=== PATIENT | male | born 1940 | race Caucasian/White ===

== ENCOUNTER 2016-09-06 21:01 | Emergency (ER) | payer OTHER ==
--- NOTE | 2016-09-07 00:07 | DIAGNOSTIC IMAGING REPORT ---
PROCEDURE: XR CHEST 1 VIEW INDICATION: COUGH TECHNIQUE: Portable AP view (2200 hours). COMPARISON: None. FINDINGS: Allowing for overlying wires and electrodes, lungs are clear. Status post median sternotomy and coronary artery bypass graft. Heart and mediastinum are of normal size. Thorax is normal. IMPRESSION: 1. Status post coronary bypass graft. 2. Otherwise negative chest.
--- NOTE | 2016-09-07 00:20 | DIAGNOSTIC IMAGING REPORT ---
PROCEDURE: CTA THORAX WITH CONTRAST INDICATION: SHORTNESS OF BREATH TECHNIQUE: AML of Isovue 370 was injected intravenously and axial images were obtained of the entire thorax with 3D sagittal and coronal MIP reconstructions. COMPARISON: None. FINDINGS: There are mild to moderate bibasilar parenchymal changes. Mid and upper lungs are clear. Pulmonary vessels are normal and there is no evidence of pulmonary embolus. Status post coronary artery bypass graft. Heart and mediastinum are of normal size. Thorax is normal. IMPRESSION: 1. Mild to moderate bibasilar parenchymal changes compatible with pneumonia (e.g., aspiration, bacterial, Mycoplasma). 2. Status post coronary artery bypass graft. 3. Otherwise negative CT pulmonary arteriogram. No evidence of pulmonary embolus.. 4. Findings discussed with Dr. Krzysztof Monroe. All CT scans at this facility use dose modulation, iterative reconstruction, and/or weight-based dosing when appropriate to reduce radiation dose to as low as reasonably achievable.
--- NOTE | 2016-09-07 02:49 | ED CLINICAL REPORT ---
Clinical Report - Physicians/Mid Levels [facility] [address] [place] [address] 09/06/2016 21:02 Patient: YENNY ESCALERA Time Seen: 2125; initial patient contact. Arrived- By private vehicle. Historian- patient. HISTORY OF PRESENT ILLNESS The patient recovered at the scene. Chief Complaint: NEAR-SYNCOPE. This occurred just prior to arrival Pt here in the ED with his who is a patient. Event was witnessed. The patient felt faint. The patient had preceding symptoms of light-headedness and nausea. At time of event, he was sitting. No injuries noted. He currently has weakness. Similar symptoms previously: None. Recent medical care: Not recently seen/assessed. REVIEW OF SYSTEMS No headache, chest pain, palpitations, abdominal pain or vomiting. No diarrhea, fever or difficulty breathing. He has had dizziness and weakness. He has had a nonproductive cough (for 3 months). All systems otherwise negative, except as recorded above. PAST HISTORY ( Diabetes Mellitus Type 2. Hypothyroidism. Myocardial Infarction. Hyperlipidemia.). Surgeries: Coronary artery bypass graft surgery. Medications: MetFORMIN HCl Oral. ASA Oral. Atorvastatin Calcium Oral. Levothyroxine Sodium Oral. Metoprolol Tartrate Oral. Unknown. Allergies: No Known Drug Allergy. SOCIAL HISTORY Former smoker, end date 1976. ADDITIONAL NOTES The nursing notes have been reviewed. PHYSICAL EXAM Vital Signs: 09/06/2016 21:15 BP: 151/58. HR: 118. RR: 22. O2 saturation: 94%. Temp: 98.3 F. Pain level now: 0/10. Have been reviewed. Hypertensive. Tachycardic. Tachypneic. Temperature normal. Oxygen saturation low. Appearance: Alert. No acute distress. ENT: Dry mucous membranes present. Neck: Normal inspection. No JVD. CVS: Tachycardia. Rhythm normal. Respiratory: No respiratory distress. Breath sounds normal. Abdomen: Soft and nontender. No organomegaly. The bowel sounds are not abnormal. Skin: Slight pallor. Extremities: No calf tenderness. No lower extremity edema. Neuro: Alert. Oriented X 3. Mood/affect normal. Speech normal. LABS, X-RAYS, AND EKG EKG: EKG time: (2210). Narrow-complex tachycardia (ventricular rate 115). Sinus tachycardia. Normal P waves. Normal DIANN. Normal QRS complex. Normal axis. Normal QT and QTc. Moderate ST depression in lead V3, V4, V5 and V6- consistent with ischemia (1 - 2 mm). Moderate T wave inversion in lead V3, V4, V5 and V6- consistent with ischemia. Prior EKG unavailable. The study has been interpreted contemporaneously by me. The study has been independently viewed by me. The EKG appears to be a good tracing. I agree with and confirm the computer reading of the EKG. Interpretation time: 221. Chest X-ray: No acute disease. Normal lung markings present. Normal heart size. No infiltrate. Sternotomy wires present. Views: AP. Technique: good. The X-rays were independently viewed by me and interpreted contemporaneously by me. Prior films were not available for comparison. Interpretation time: 22:04. Laboratory Tests: CPK: (ALFRED: 09/07/2016 02:10) ( [facility] 09/07/2016 03:04) IP Test Result Flag Units (Reference) CPK 285 H U/L (24-260) TROPONIN I 0.61 ng/mL (0.00-1.5) TROPONIN REFERENCE RANGE:<0.1 NEGATIVE0.1-1.5 INDETERMINANT>1.5 POSITIVE UA-Culture if indicated: (ALFRED: 09/06/2016 23:10) ( [facility] 09/06/2016 23:30) Final results Test Result Flag Units (Reference) URINE COLOR YELLOW URINE APPEARANCE SLIGHTLY HAZY URINE GLUCOSE NEGATIVE (NEGATIVE) URINE BILIRUBIN NEGATIVE (NEGATIVE) URINE KETONE NEGATIVE (NEGATIVE) URINE SPECIFIC GRAVITY 1.025 (1.010-1.030) URINE PH 5.5 (5.0-8.0) URINE PROTEIN 1+ (NEGATIVE) URINE UROBILINOGEN 0.2 EU/dL (0.2-1.0) URINE NITRITE POSITIVE (NEGATIVE) URINE BLOOD 2+ (NEGATIVE) URINE LEUK ESTERASE POSITIVE (NEGATIVE) URINE RBC 3-5 rbc/hpf (0-1) URINE WBC 15-25 wbc/hpf (0-1) URINE EPITHELIAL CELLS RARE EPI/hpf (0-5) URINE BACTERIA MANY (4+) (NONE SEEN) URINE COMMENT CULTURE INDICATED HYALINE CAST: 1-3/LPFURINE CULTURES ARE SET-UP BASED ON THE FOLLOWING CRITERIA:POSITIVE NITRITEPOSITIVE LEUKOCYTE ESTERASEGREATER THAN 10 WHITE BLOOD CELLSMODERATE (2+) OR GREATER BACTERIA CBC w Diff: (ALFRED: 09/06/2016 21:20) ( [facility] 09/06/2016 23:12) Final results Test Result Flag Units (Reference) WHITE BLOOD COUNT 5.3 K/uL (4.5-11.5) CORRECTED WBC 5.1 K/uL RED BLOOD COUNT 3.65 L M/uL (4.50-5.90) HEMOGLOBIN 8.2 L gm/dL (13.5-17.5) HEMATOCRIT 26.4 L % (41.0-53.0) MEAN CELL VOLUME 72 L fL (80-100) MEAN CORPUSCULAR HGB 23 L pg (26-34) MEAN CORPUSCULAR HGB CONC 31 g/dL (31-37) RED CELL DISTRIBUTION WIDTH 30.9 H % (11.6-14.8) POLY % 5 L % (50-75) BAND % 14 H % (0-8) LYMPH 67 H % (25-40) MONO 9 % (3-14) EOSINOPHIL % 0 % (0-4) BASOPHIL % 0 % (0-2) METAMYELOCYTE % 2 H % (0-1) MYELOCYTE 3 H % (0-1) NUCLEATED RED BLOOD CELL 4 H (0-1) OTHER CELL TYPE 0 HYPOCHROMIA 1+ ANISOCYTOSIS 4+ [id number]: (ALFRED: 09/06/2016 21:20) ( [facility] 09/06/2016 22:36) Final results Test Result Flag Units (Reference) D-DIMER QUANTITATIVE 10.88 *H ug/mLFEU (0.27-0.52) CRITICAL RESULTS CALLEDCalled to BRITTANY ADKINS, ER 09/06/16 2235Were 2 patient identifiers used? YESWas the result read back? YESThe primary value of this quantitative assay relates toits negative predictive value (i.e. exclusion) of pulmonaryembolism/deep vein thrombosis/DIC.Elevated levels of d-dimer may also occur with:, age, cancer, inflammation, liver disease,post-op, infection, hematoma, coronary disease, peripheralarteriopathy, bleeding disorders and thrombolytic treatment.Results should be correlated with other clinical andradiological data.Testing Methodology: Latex Immunoassay BNP: (ALFRED: 09/06/2016 21:20) ( Wag[facility]cvd 09/06/2016 22:37) Final results Test Result Flag Units (Reference) B-TYPE NATRIURETIC PEPTIDE 322 H pg/ml (5-100) CHEM 13 PANEL: (ALFRED: 09/06/2016 21:20) ( Wag[facility]cv[facility] 09/06/2016 23:12) Final results Test Result Flag Units (Reference) GLUCOSE 140 H mg/dL (70-110) BUN 20 H mg/dL (7-18) CREATININE 1.3 mg/dL (0.6-1.3) Estimated GFR 57.20 mL/min Estimated GFR- >60 mL/min Note: Persistent reduction over 3 months in eGFR<60 mL/min/1.73 m2 defines CKD. Patients with eGFR values>=60 mL/min/1.73 m2 may also have CKD if evidence ofpersistent proteinuria. Additional information may be foundat www.kidney.org. SODIUM 136 mmol/L (136-145) POTASSIUM 4.1 mmol/L (3.5-5.1) CHLORIDE 99 mmol/L (98-107) CARBON DIOXIDE 21 mmol/L (21-32) CALCIUM 8.6 mg/dL (8.5-10.1) TOTAL PROTEIN 9.8 H g/dL (6.4-8.2) ALBUMIN 2.7 L g/dL (3.3-5.0) BILIRUBIN, TOTAL 0.6 mg/dL (0.0-1.0) ALKALINE PHOSPHATASE 51 U/L (46-116) AST (SGOT) 28 U/L (15-37) ALT (SGPT) 22 U/L (12-78) CPK 331 H U/L (24-260) MAGNESIUM 1.6 L mg/dL (1.8-2.4) CK-MB 1.7 ng/mL (0.5-3.2) %CKMB 0.5 % (0.0-4.0) TROPONIN I 1.13 ng/mL (0.00-1.5) TROPONIN REFERENCE RANGE:<0.1 NEGATIVE0.1-1.5 INDETERMINANT>1.5 POSITIVE ABG: (ALFRED: 09/06/2016 23:07) ( MsgRcvd 09/07/2016 00:06) Final results Test Result Flag Units (Reference) FIO2 34 % (20-101) ABG MODE OF DELIVERY NC MODIFIED ARUNA TEST POSITIVE? YES ARTERIAL BLOOD GAS SITE LR ARTERIAL BLOOD GAS pH 7.42 (7.35-7.45) ABG PCO2 30.5 L mmHg (35-45) ABG PO2 135.0 H mmHg (60.0-80.0) ABG BASE EXCESS -4.3 H mmol/L (-6.0--6.0) ABG HCO3 19.9 L mmol/L (20.0-26.0) ABG TCO2 20.8 L mmol/L (24.0-30.0) ABG FgLaO1e 72.6 H mmHg (7.0-14.0) *NOTE: Normal rangeis based on aFIO2 of 21% ABG SAT O2 99.4 % (95.1-100.0) ABG TOTAL HEMOGLOBIN 6.8 *L g/dL (14.0-18.0) ABG O2 HEMOGLOBIN 98.1 % (95.0-100.0) ABG CARBOXYHEMOGLOBIN 1.0 % (0.5-1.5) ABG METHEMOGLOBIN 0.3 L % (0.4-1.5) ABG RHEMOGLOBIN 0.6 % . PROGRESS AND PROCEDURES Course of Care: 0030: Dr. Larry at Prov: Not an ICU candidate and no regular beds available(called Prov b/c his telephoto installer is there. 0045: Dr. Abraham: Declines pt due to no cardiology here 0130: Dr. [facility] [place] accepts as well as hospitalist Dr. Glover. Critical care performed (90 minutes). Time includes: direct patient care, patient reassessment, coordination of patient care, interpretation of data (laboratory data, arterial blood gases and chest xrays), review of patient's medical records, medical consultation, family consultation regarding treatment decisions and documentation of patient care. The patient required critical care due to the acute impairment of vital organ systems (cardiovascular, respiratory and hematologic) and a high probability of imminent deterioration. Multiple urgent interventions were required to prevent sudden deterioration. Disposition: Benefits, risks and alternatives to transfer explained to patient, family and spouse. Transferred to [facility]. Condition: stable. CLINICAL IMPRESSION Abnormal EKG: depressed ST segments and inverted T waves. Bacterial pneumonia with hypoxemia. Empiric antibiotics given in the ED. Moderate chronic anemia associated with chronic disease. Acute urinary tract infection with cystitis. Mild hypomagnesemia. (Electronically signed by Krzysztof Monroe Dr. 09/07/2016 3:08) Addenda for LALI YENNY Nick VisitID: [id number] Date: 09/06/2016 09/07/2016 3:07 400mg Magnesium Oxide given PO prior to pt leaving [facility]. (Electronically signed by Tania Deras R.N. 09/07/2016 3:07)
--- NOTE | 2016-09-07 02:49 | ED CLINICAL REPORT ---
Clinical Report - Physicians/Mid Levels [facility] [address] [place] [address] 09/06/2016 21:02 Patient: YENNY ESCALERA Time Seen: 2125; initial patient contact. Arrived- By private vehicle. Historian- patient. HISTORY OF PRESENT ILLNESS The patient recovered at the scene. Chief Complaint: NEAR-SYNCOPE. This occurred just prior to arrival Pt here in the ED with his who is a patient. Event was witnessed. The patient felt faint. The patient had preceding symptoms of light-headedness and nausea. At time of event, he was sitting. No injuries noted. He currently has weakness. Similar symptoms previously: None. Recent medical care: Not recently seen/assessed. REVIEW OF SYSTEMS No headache, chest pain, palpitations, abdominal pain or vomiting. No diarrhea, fever or difficulty breathing. He has had dizziness and weakness. He has had a nonproductive cough (for 3 months). All systems otherwise negative, except as recorded above. PAST HISTORY ( Diabetes Mellitus Type 2. Hypothyroidism. Myocardial Infarction. Hyperlipidemia.). Surgeries: Coronary artery bypass graft surgery. Medications: MetFORMIN HCl Oral. ASA Oral. Atorvastatin Calcium Oral. Levothyroxine Sodium Oral. Metoprolol Tartrate Oral. Unknown. Allergies: No Known Drug Allergy. SOCIAL HISTORY Former smoker, end date 1976. ADDITIONAL NOTES The nursing notes have been reviewed. PHYSICAL EXAM Vital Signs: 09/06/2016 21:15 BP: 151/58. HR: 118. RR: 22. O2 saturation: 94%. Temp: 98.3 F. Pain level now: 0/10. Have been reviewed. Hypertensive. Tachycardic. Tachypneic. Temperature normal. Oxygen saturation low. Appearance: Alert. No acute distress. ENT: Dry mucous membranes present. Neck: Normal inspection. No JVD. CVS: Tachycardia. Rhythm normal. Respiratory: No respiratory distress. Breath sounds normal. Abdomen: Soft and nontender. No organomegaly. The bowel sounds are not abnormal. Skin: Slight pallor. Extremities: No calf tenderness. No lower extremity edema. Neuro: Alert. Oriented X 3. Mood/affect normal. Speech normal. LABS, X-RAYS, AND EKG EKG: EKG time: (2210). Narrow-complex tachycardia (ventricular rate 115). Sinus tachycardia. Normal P waves. Normal DIANN. Normal QRS complex. Normal axis. Normal QT and QTc. Moderate ST depression in lead V3, V4, V5 and V6- consistent with ischemia (1 - 2 mm). Moderate T wave inversion in lead V3, V4, V5 and V6- consistent with ischemia. Prior EKG unavailable. The study has been interpreted contemporaneously by me. The study has been independently viewed by me. The EKG appears to be a good tracing. I agree with and confirm the computer reading of the EKG. Interpretation time: 221. Chest X-ray: No acute disease. Normal lung markings present. Normal heart size. No infiltrate. Sternotomy wires present. Views: AP. Technique: good. The X-rays were independently viewed by me and interpreted contemporaneously by me. Prior films were not available for comparison. Interpretation time: 22:04. Laboratory Tests: CPK: (ALFRED: 09/07/2016 02:10) ( [facility] 09/07/2016 03:04) IP Test Result Flag Units (Reference) CPK 285 H U/L (24-260) TROPONIN I 0.61 ng/mL (0.00-1.5) TROPONIN REFERENCE RANGE:<0.1 NEGATIVE0.1-1.5 INDETERMINANT>1.5 POSITIVE UA-Culture if indicated: (ALFRED: 09/06/2016 23:10) ( [facility] 09/06/2016 23:30) Final results Test Result Flag Units (Reference) URINE COLOR YELLOW URINE APPEARANCE SLIGHTLY HAZY URINE GLUCOSE NEGATIVE (NEGATIVE) URINE BILIRUBIN NEGATIVE (NEGATIVE) URINE KETONE NEGATIVE (NEGATIVE) URINE SPECIFIC GRAVITY 1.025 (1.010-1.030) URINE PH 5.5 (5.0-8.0) URINE PROTEIN 1+ (NEGATIVE) URINE UROBILINOGEN 0.2 EU/dL (0.2-1.0) URINE NITRITE POSITIVE (NEGATIVE) URINE BLOOD 2+ (NEGATIVE) URINE LEUK ESTERASE POSITIVE (NEGATIVE) URINE RBC 3-5 rbc/hpf (0-1) URINE WBC 15-25 wbc/hpf (0-1) URINE EPITHELIAL CELLS RARE EPI/hpf (0-5) URINE BACTERIA MANY (4+) (NONE SEEN) URINE COMMENT CULTURE INDICATED HYALINE CAST: 1-3/LPFURINE CULTURES ARE SET-UP BASED ON THE FOLLOWING CRITERIA:POSITIVE NITRITEPOSITIVE LEUKOCYTE ESTERASEGREATER THAN 10 WHITE BLOOD CELLSMODERATE (2+) OR GREATER BACTERIA CBC w Diff: (ALFRED: 09/06/2016 21:20) ( [facility] 09/06/2016 23:12) Final results Test Result Flag Units (Reference) WHITE BLOOD COUNT 5.3 K/uL (4.5-11.5) CORRECTED WBC 5.1 K/uL RED BLOOD COUNT 3.65 L M/uL (4.50-5.90) HEMOGLOBIN 8.2 L gm/dL (13.5-17.5) HEMATOCRIT 26.4 L % (41.0-53.0) MEAN CELL VOLUME 72 L fL (80-100) MEAN CORPUSCULAR HGB 23 L pg (26-34) MEAN CORPUSCULAR HGB CONC 31 g/dL (31-37) RED CELL DISTRIBUTION WIDTH 30.9 H % (11.6-14.8) POLY % 5 L % (50-75) BAND % 14 H % (0-8) LYMPH 67 H % (25-40) MONO 9 % (3-14) EOSINOPHIL % 0 % (0-4) BASOPHIL % 0 % (0-2) METAMYELOCYTE % 2 H % (0-1) MYELOCYTE 3 H % (0-1) NUCLEATED RED BLOOD CELL 4 H (0-1) OTHER CELL TYPE 0 HYPOCHROMIA 1+ ANISOCYTOSIS 4+ [id number]: (ALFRED: 09/06/2016 21:20) ( [facility] 09/06/2016 22:36) Final results Test Result Flag Units (Reference) D-DIMER QUANTITATIVE 10.88 *H ug/mLFEU (0.27-0.52) CRITICAL RESULTS CALLEDCalled to BRITTANY ADKINS, ER 09/06/16 2235Were 2 patient identifiers used? YESWas the result read back? YESThe primary value of this quantitative assay relates toits negative predictive value (i.e. exclusion) of pulmonaryembolism/deep vein thrombosis/DIC.Elevated levels of d-dimer may also occur with:, age, cancer, inflammation, liver disease,post-op, infection, hematoma, coronary disease, peripheralarteriopathy, bleeding disorders and thrombolytic treatment.Results should be correlated with other clinical andradiological data.Testing Methodology: Latex Immunoassay BNP: (ALFRED: 09/06/2016 21:20) ( CogRcvd 09/06/2016 22:37) Final results Test Result Flag Units (Reference) B-TYPE NATRIURETIC PEPTIDE 322 H pg/ml (5-100) CHEM 13 PANEL: (ALFRED: 09/06/2016 21:20) ( CogRcvd 09/06/2016 23:12) Final results Test Result Flag Units (Reference) GLUCOSE 140 H mg/dL (70-110) BUN 20 H mg/dL (7-18) CREATININE 1.3 mg/dL (0.6-1.3) Estimated GFR 57.20 mL/min Estimated GFR- >60 mL/min Note: Persistent reduction over 3 months in eGFR<60 mL/min/1.73 m2 defines CKD. Patients with eGFR values>=60 mL/min/1.73 m2 may also have CKD if evidence ofpersistent proteinuria. Additional information may be foundat www.kidney.org. SODIUM 136 mmol/L (136-145) POTASSIUM 4.1 mmol/L (3.5-5.1) CHLORIDE 99 mmol/L (98-107) CARBON DIOXIDE 21 mmol/L (21-32) CALCIUM 8.6 mg/dL (8.5-10.1) TOTAL PROTEIN 9.8 H g/dL (6.4-8.2) ALBUMIN 2.7 L g/dL (3.3-5.0) BILIRUBIN, TOTAL 0.6 mg/dL (0.0-1.0) ALKALINE PHOSPHATASE 51 U/L (46-116) AST (SGOT) 28 U/L (15-37) ALT (SGPT) 22 U/L (12-78) CPK 331 H U/L (24-260) MAGNESIUM 1.6 L mg/dL (1.8-2.4) CK-MB 1.7 ng/mL (0.5-3.2) %CKMB 0.5 % (0.0-4.0) TROPONIN I 1.13 ng/mL (0.00-1.5) TROPONIN REFERENCE RANGE:<0.1 NEGATIVE0.1-1.5 INDETERMINANT>1.5 POSITIVE ABG: (ALFRED: 09/06/2016 23:07) ( MsgRcvd 09/07/2016 00:06) Final results Test Result Flag Units (Reference) FIO2 34 % (20-101) ABG MODE OF DELIVERY NC MODIFIED ARUNA TEST POSITIVE? YES ARTERIAL BLOOD GAS SITE LR ARTERIAL BLOOD GAS pH 7.42 (7.35-7.45) ABG PCO2 30.5 L mmHg (35-45) ABG PO2 135.0 H mmHg (60.0-80.0) ABG BASE EXCESS -4.3 H mmol/L (-6.0--6.0) ABG HCO3 19.9 L mmol/L (20.0-26.0) ABG TCO2 20.8 L mmol/L (24.0-30.0) ABG WcObP1u 72.6 H mmHg (7.0-14.0) *NOTE: Normal rangeis based on aFIO2 of 21% ABG SAT O2 99.4 % (95.1-100.0) ABG TOTAL HEMOGLOBIN 6.8 *L g/dL (14.0-18.0) ABG O2 HEMOGLOBIN 98.1 % (95.0-100.0) ABG CARBOXYHEMOGLOBIN 1.0 % (0.5-1.5) ABG METHEMOGLOBIN 0.3 L % (0.4-1.5) ABG RHEMOGLOBIN 0.6 % . PROGRESS AND PROCEDURES Course of Care: 0030: Dr. Larry at Prov: Not an ICU candidate and no regular beds available(called Prov b/c his vegetable handler is there. 0045: Dr. Abraham: Declines pt due to no cardiology here 0130: Dr. [facility] [place] accepts as well as hospitalist Dr. Glover. Critical care performed (90 minutes). Time includes: direct patient care, patient reassessment, coordination of patient care, interpretation of data (laboratory data, arterial blood gases and chest xrays), review of patient's medical records, medical consultation, family consultation regarding treatment decisions and documentation of patient care. The patient required critical care due to the acute impairment of vital organ systems (cardiovascular, respiratory and hematologic) and a high probability of imminent deterioration. Multiple urgent interventions were required to prevent sudden deterioration. Disposition: Benefits, risks and alternatives to transfer explained to patient, family and spouse. Transferred to [facility]. Condition: stable. CLINICAL IMPRESSION Abnormal EKG: depressed ST segments and inverted T waves. Bacterial pneumonia with hypoxemia. Empiric antibiotics given in the ED. Moderate chronic anemia associated with chronic disease. Acute urinary tract infection with cystitis. Mild hypomagnesemia. (Electronically signed by Krzysztof Monroe Dr. 09/07/2016 3:08) Addenda for LALI YENNY Nick VisitID: [id number] Date: 09/06/2016 09/07/2016 3:07 400mg Magnesium Oxide given PO prior to pt leaving [facility]. (Electronically signed by Tania Deras R.N. 09/07/2016 3:07)
--- NOTE | 2016-09-07 02:50 | ED ORDER SUMMARY ---
..... Patient: YENNY ESCALERA OrderSheet [facility] VisitID: [id number] [place] [address] 76y, M Registration Date/Time: 09/06/2016 ORDER SHEET Weight: 87.0 kg (measured) Allergies: No Known Drug Allergy GENERAL ORDERS: Chest 1V Urgent (21:49 09/06/2016 Fernando Giordano) (Ack 21:53 Ольга) (22:04 Porter) UA-Culture if indicated Urgent (21:50 09/06/2016 Fernando Giordano) (Ack 21:53 Ольга) (23:23 Husam R.N.) Cardiac Panel Stat (21:50 09/06/2016 Fernando Giordano) (Ack 21:53 Ольга) (23:14 Husam R.N.) BNP Urgent (21:50 09/06/2016 Fernando Giordano) (Ack 21:53 Ольга) (23:14 Husam R.N.) D-Dimer Urgent (21:50 09/06/2016 Fernando Giordano) (Ack 21:53 Ольга) (23:14 Stevenandez R.N.) EKG - ER Stat (22:02 09/06/2016 Fernando Giordano) (Ack 22:12 Anusha) (22:12 Ольга) CTA Thorax w Cont (Yes) (20/1.3) Urgent (22:59 09/06/2016 Fernando Giordano) (Ack 23:05 Anusha) (0:03 Husam R.N.) ABG (G) Urgent (23:07 09/06/2016 Fernando Giordano) (Ack 23:19 Ольга) (0:03 Stevenandez R.N.) CPK Urgent (01:40 09/07/2016 Fernando Giordano) (Ack 1:54 Ольга) Troponin-I Urgent (01:40 09/07/2016 Fernando Giordano) (Ack 1:54 Ольга) MEDICATION ORDERS: IV FLUIDS: IV NS : initial bolus none -, then 1000 mL/hr for X1 (NOW) (21:49 09/06/2016 Fernando Giordano) (Ack 23:14 Husam R.N.) (23:17 Husam R.N.) Ceftriaxone IV 1 gm/50mL (NOW) (00:14 09/07/2016 Fernando Giordano) (Ack 0:19 Husam R.N.) (0:43 Husam R.N.) ORDER SHEET NOTES: [Electronically signed by Tania Deras R.N. (03:00 09/07/2016)] [Electronically signed by Krzysztof Monroe Dr. (03:08 09/07/2016)] [Electronically locked/signed by Tania Deras R.N. (03:00 09/07/2016)]
--- NOTE | 2016-09-07 02:50 | ED NURSING NOTES ---
Clinical Report - Nurses [facility] [address] [place] [address] 09/06/2016 21:02 Patient: YENNY ESCALERA TRIAGE Triage time 21:15. Acuity: LEVEL 2. Chief Complaint: DIZZINESS and NEAR-SYNCOPE. --21:26 Josh Choudhary R.N. 21:15 09/06/16. BP: 151/58. HR: 118. RR: 22. O2 saturation: 94%. Temp: 98.3 F. Pain level now: 0/10. --21:26 Josh Choudhary R.N. Weight: 87 kg measured. Height/Length: 67 inches Per Patient. BMI: 30.1. --21:24 Josh Choudhary R.N. Medications Unknown. --21:18 Josh Choudhary R.N. Metoprolol Tartrate Oral. --21:19 Josh Choudhary R.N. Levothyroxine Sodium Oral. --21:19 Josh Choudhary R.N. Atorvastatin Calcium Oral. --21:19 Josh Choudhary R.N. ASA Oral. --21:20 Josh Choudhary R.N. MetFORMIN HCl Oral. --21:20 Josh Choudhary R.N. Medication/allergy information source: the patient. --21:26 Josh Choudhary R.N. Allergies No Known Drug Allergy. --21:18 Josh Choudhary R.N. History Arrived by private vehicle. Historian: patient. Accompanied by family. ( Was sitting on the chair in the room with his as patient when stated c/o feeling dizzy, became pale and diaphoretic. Eyes rolled back and became pre-syncopal. Noted to have low BP.). This started just prior to arrival. PAST MEDICAL HX: Diabetes mellitus. Hypertension. SURGERY HX: Coronary artery bypass graft surgery. SOCIAL HX: Smoker- current status unknown. No infectious disease exposure. --21:26 Josh Choudhary R.N. PROBLEMS: Diabetes Mellitus Type 2. Hypothyroidism. Myocardial Infarction. Hyperlipidemia. --: Josh Choudhary R.N. Myelodysplastic syndrome (clinical). --01: Tania Deras R.N. Interventions ID band on patient. To room. --: Josh Choudhary R.N. PHYSICAL ASSESSMENT GENERAL / NEURO / PSYCH: Oriented X 4. Appears in no acute distress. Alert. Speech within normal limits. Pupillary exam: Pupils are equal, round, and reactive to light. Right pupil 2mm, round and briskly reactive to light directly and with accommodation. Left pupil: 2mm, round and briskly reactive to light directly and with accommodation. HEENT: Pupils equal, round and reactive to light. RESPIRATORY: Breath sounds within normal limits. Respirations not labored. CVS: Cardiac rhythm: sinus tachycardia. Capillary refill less than 2 seconds. GI / : The patient has had nausea. Abdomen soft and nontender. SKIN: Skin is pale, diaphoretic and clammy. --:28 Josh Choudhary R.N. NURSING PROGRESS NOTES Cardiac rhythm: sinus tachycardia. traffic monitor specialist, pulse oximeter and NIBP monitor placed on patient; nurse monitoring- Lead II. Patient ID band checked: patient confirmed. Blood samples drawn from the right antecubital space IV site with Vacutainer by nurse: mayuri cobos. Line flushed with 10 mL normal saline post blood draw. Patient gowned. Head of bed elevated 45 degrees. Reassurance given. Reassessment after fluids administered (PO). GENERAL / NEURO / PSYCH: Patient is calm and cooperative. Affect appears normal. Alert. Oriented X 4. RESPIRATORY: No respiratory distress. Patient identifiers checked. Call light placed in reach. Side rails up x 2. Bed placed in lowest position. Brakes of bed on. Patient ready for evaluation- ED physician and [facility] notified. --:30 Josh Choudhary R.N. EKG time: (22:11 PM). EKG was performed by a servando and shown to the ED physician. --22:14 Yakelin Carranza 21:47 09/06/2016 Site #1 started via IV in the right antecubital space with an 20g angiocath; one attempt. Saline lock flushed with 10 mL saline. --23:17 Josh Choudhary R.N. 22:17 09/06/2016 Started IV Fluids IV NS (Saline); bolus of 1000 mL over 1 hour(s) via site #1 via IV pump. Allergies verified and confirmed 5 rights. IV patency established. IV site checked: no pain, redness, or swelling. IV flushed thoroughly pre- and post-medication administration. --23:17 Josh Choudhary R.N. 23:18 09/06/2016 IV Fluids IV NS Discontinued: bag #1 infused. Total amount infused: 1000 mL. IV patency established. IV site checked: no pain, redness, or swelling. IV flushed thoroughly. --23:18 Josh Choudhary R.N. Reassessment after fluids administered. He is calm and resting quietly. Overall patient status is improved- he states feels better. GENERAL / NEURO / PSYCH: Patient is calm and cooperative. Affect appears normal. Alert. Oriented X 4. RESPIRATORY: No respiratory distress. CVS: Cardiac rhythm: sinus tachycardia. SKIN: Skin is warm and dry. --23:20 Josh Choudhary R.N. 23:18 09/06/16. BP: 135/67. HR: 124. RR: 20. O2 saturation: 95% on nasal cannula at 4 liters/minute. O2 started via nasal cannula at 4 liters/minute. Temp: 97.9 F (oral). --23:20 Josh Choudhary R.N. ( Preliminary report given to [facility] Nursing supervisor precision optical elements RN. Julianna). --23:33 Josh Choudhary R.N. 00:01 09/07/16. BP: 133/67. HR: 114. RR: 18. O2 saturation: 99%. Pain level now: 0/10. --00:03 Josh Choudhary R.N. Cardiac rhythm: sinus tachycardia. Patient ID band checked for patient name and birthdate: patient confirmed. Blood samples drawn from the left wrist with syringe by nurse ; labeled in presence of the patient and sent to lab. (ABG). Reassessment after procedure (CT scan). He reports no complaints and he is calm. Overall patient status is improved- he states feels better. GENERAL / NEURO / PSYCH: Patient is calm and cooperative. Affect appears normal. Alert. Oriented X 4. RESPIRATORY: No respiratory distress. SKIN: Skin is warm and dry. --00:03 Josh Choudhary R.N. 00:38 09/07/2016 Started 1 gm of Ceftriaxone IVPB in bag #1 50 mL; at 100 mL/hr over 30 minute(s) via site #1 via IV pump. Allergies verified and confirmed 5 rights. IV patency established. IV site checked: no pain, redness, or swelling. IV flushed thoroughly pre- and post-medication administration. --00:43 Josh Choudhary R.N. Cardiac rhythm: sinus tachycardia. Reassessment after medication administered. He reports no complaints and he is calm and resting quietly. Overall patient status is improved- he states feels better. GENERAL / NEURO / PSYCH: Patient is calm and cooperative. Alert. Oriented X 4. RESPIRATORY: No respiratory distress. SKIN: Skin is warm and dry. --00:45 Josh Choudhary R.N. 00:43 09/07/16. BP: 120/62. HR: 111. RR: 20. O2 saturation: 98% on nasal cannula at 4 liters/minute. Temp: 98.1 F (oral). Pain level now: 0/10. --00:45 Josh Choudhary R.N. 01:06 09/07/2016 Ceftriaxone IVPB Discontinued: bag #1 infused. Total amount infused: 50 mL. IV patency established. IV site checked: no pain, redness, or swelling. IV flushed thoroughly. --01:06 Josh Choudhary R.N. Cardiac rhythm: sinus tachycardia. Reassessment after medication administered (Ceftriaxone). He reports no complaints and he is calm and resting quietly. Overall patient status is improved- he states feels better. GENERAL / NEURO / PSYCH: Patient is calm and cooperative. Affect appears normal. Alert. Oriented X 4. RESPIRATORY: No respiratory distress. SKIN: Skin is warm and dry. --01:08 Josh Choudhary R.N. 01:06 09/07/16. BP: 125/66. HR: 110. RR: 20. O2 saturation: 96% on nasal cannula at 4 liters/minute. --01:08 Josh Choudhary R.N. Care transferred and report received. --01:15 Tania Deras R.N. Patient ID band checked for patient name and birthdate: patient confirmed. Blood samples drawn from the right antecubital space peripheral IV site with syringe by nurse per protocol ; labeled in presence of the patient and sent to lab. Initial blood discarded and additional blood sent to lab. Line flushed with 10 mL normal saline post blood draw. --02:13 Tania Deras R.N. DISPOSITION / DISCHARGE 02:36 09/07/16. BP: 144/66. HR: 128. RR: 16 (regular and unlabored). O2 saturation: 100% on nasal cannula at 2 liters/minute. Temp: deferred. Fisher-Rodas pain scale: 4/10. --02:37 Tania Deras R.N. Report was given to a nurse via a phone call. Report included patient's care, treatment, medications, reviewed medication reconcilliation, and condition (including any recent changes or anticipated changes). All questions were answered. Report was acknowledged. (to JED Ortega). --02:49 Tania Deras R.N. Transferred to [facility]. Summary of care provided to transport team via paper. Report was given. (to ground transportation operator, Magnus Gonsalez). Patient's personal items include: shirt, coat and hat; items were placed in belongings bag and transported with the patient. Collection of belongings was witnessed by 1 nurse. --02:58 Tania Deras R.N. Locked/Released at 09/07/2016 3:00 by Tania Deras R.N.
--- NOTE | 2016-09-07 02:50 | ED ORDER SUMMARY ---
..... Patient: YENNY ESCALERA OrderSheet [facility] VisitID: [id number] [place] [address] 76y, M Registration Date/Time: 09/06/2016 ORDER SHEET Weight: 87.0 kg (measured) Allergies: No Known Drug Allergy GENERAL ORDERS: Chest 1V Urgent (21:49 09/06/2016 Fernando Giordano) (Ack 21:53 Ольга) (22:04 Porter) UA-Culture if indicated Urgent (21:50 09/06/2016 Fernando Giordano) (Ack 21:53 Ольга) (23:23 Husam R.N.) Cardiac Panel Stat (21:50 09/06/2016 Fernando Giordano) (Ack 21:53 Ольга) (23:14 Husam R.N.) BNP Urgent (21:50 09/06/2016 Fernando Giordano) (Ack 21:53 Ольга) (23:14 Husam R.N.) D-Dimer Urgent (21:50 09/06/2016 Fernando Giordano) (Ack 21:53 Ольга) (23:14 Stevenandez R.N.) EKG - ER Stat (22:02 09/06/2016 Fernando Giordano) (Ack 22:12 Anusha) (22:12 Ольга) CTA Thorax w Cont (Yes) (20/1.3) Urgent (22:59 09/06/2016 Fernando Giordano) (Ack 23:05 Anusha) (0:03 Husam R.N.) ABG (G) Urgent (23:07 09/06/2016 Fernando Giordano) (Ack 23:19 Ольга) (0:03 Stevenandez R.N.) CPK Urgent (01:40 09/07/2016 Fernando Giordano) (Ack 1:54 Ольга) Troponin-I Urgent (01:40 09/07/2016 Fernando Giordano) (Ack 1:54 Ольга) MEDICATION ORDERS: IV FLUIDS: IV NS : initial bolus none -, then 1000 mL/hr for X1 (NOW) (21:49 09/06/2016 Fernando Giordano) (Ack 23:14 Husam R.N.) (23:17 Husam R.N.) Ceftriaxone IV 1 gm/50mL (NOW) (00:14 09/07/2016 Fernando Giordano) (Ack 0:19 Husam R.N.) (0:43 Husam R.N.) ORDER SHEET NOTES: [Electronically signed by Tania Deras R.N. (03:00 09/07/2016)] [Electronically signed by Krzysztof Monroe Dr. (03:08 09/07/2016)] [Electronically locked/signed by Tania Deras R.N. (03:00 09/07/2016)]
--- NOTE | 2016-09-07 02:50 | ED NURSING NOTES ---
Clinical Report - Nurses [facility] [address] [place] [address] 09/06/2016 21:02 Patient: YENNY ESCALERA TRIAGE Triage time 21:15. Acuity: LEVEL 2. Chief Complaint: DIZZINESS and NEAR-SYNCOPE. --21:26 Josh Choudhary R.N. 21:15 09/06/16. BP: 151/58. HR: 118. RR: 22. O2 saturation: 94%. Temp: 98.3 F. Pain level now: 0/10. --21:26 Josh Choudhary R.N. Weight: 87 kg measured. Height/Length: 67 inches Per Patient. BMI: 30.1. --21:24 Josh Choudhary R.N. Medications Unknown. --21:18 Josh Choudhary R.N. Metoprolol Tartrate Oral. --21:19 Josh Choudhary R.N. Levothyroxine Sodium Oral. --21:19 Josh Choudhary R.N. Atorvastatin Calcium Oral. --21:19 Josh Choudhary R.N. ASA Oral. --21:20 Josh Choudhary R.N. MetFORMIN HCl Oral. --21:20 Josh Choudhary R.N. Medication/allergy information source: the patient. --21:26 Josh Choudhary R.N. Allergies No Known Drug Allergy. --21:18 Josh Choudhary R.N. History Arrived by private vehicle. Historian: patient. Accompanied by family. ( Was sitting on the chair in the room with his as patient when stated c/o feeling dizzy, became pale and diaphoretic. Eyes rolled back and became pre-syncopal. Noted to have low BP.). This started just prior to arrival. PAST MEDICAL HX: Diabetes mellitus. Hypertension. SURGERY HX: Coronary artery bypass graft surgery. SOCIAL HX: Smoker- current status unknown. No infectious disease exposure. --21:26 Josh Choudhary R.N. PROBLEMS: Diabetes Mellitus Type 2. Hypothyroidism. Myocardial Infarction. Hyperlipidemia. --: Josh Choudhary R.N. Myelodysplastic syndrome (clinical). --01: Tania Deras R.N. Interventions ID band on patient. To room. --: Josh Choudhary R.N. PHYSICAL ASSESSMENT GENERAL / NEURO / PSYCH: Oriented X 4. Appears in no acute distress. Alert. Speech within normal limits. Pupillary exam: Pupils are equal, round, and reactive to light. Right pupil 2mm, round and briskly reactive to light directly and with accommodation. Left pupil: 2mm, round and briskly reactive to light directly and with accommodation. HEENT: Pupils equal, round and reactive to light. RESPIRATORY: Breath sounds within normal limits. Respirations not labored. CVS: Cardiac rhythm: sinus tachycardia. Capillary refill less than 2 seconds. GI / : The patient has had nausea. Abdomen soft and nontender. SKIN: Skin is pale, diaphoretic and clammy. --:28 Josh Choudhary R.N. NURSING PROGRESS NOTES Cardiac rhythm: sinus tachycardia. front desk monitor, pulse oximeter and NIBP monitor placed on patient; cardiac care unit nurse- Lead II. Patient ID band checked: patient confirmed. Blood samples drawn from the right antecubital space IV site with Vacutainer by nurse: mayuri cobos. Line flushed with 10 mL normal saline post blood draw. Patient gowned. Head of bed elevated 45 degrees. Reassurance given. Reassessment after fluids administered (PO). GENERAL / NEURO / PSYCH: Patient is calm and cooperative. Affect appears normal. Alert. Oriented X 4. RESPIRATORY: No respiratory distress. Patient identifiers checked. Call light placed in reach. Side rails up x 2. Bed placed in lowest position. Brakes of bed on. Patient ready for evaluation- ED physician and DIRECTOR DESIGN notified. --:30 Josh Choudhary R.N. EKG time: (22:11 PM). EKG was performed by a servando and shown to the ED physician. --22:14 Yakelin Carranza 21:47 09/06/2016 Site #1 started via IV in the right antecubital space with an 20g angiocath; one attempt. Saline lock flushed with 10 mL saline. --23:17 Josh Choudhary R.N. 22:17 09/06/2016 Started IV Fluids IV NS (Saline); bolus of 1000 mL over 1 hour(s) via site #1 via IV pump. Allergies verified and confirmed 5 rights. IV patency established. IV site checked: no pain, redness, or swelling. IV flushed thoroughly pre- and post-medication administration. --23:17 Josh Choudhary R.N. 23:18 09/06/2016 IV Fluids IV NS Discontinued: bag #1 infused. Total amount infused: 1000 mL. IV patency established. IV site checked: no pain, redness, or swelling. IV flushed thoroughly. --23:18 Josh Choudhary R.N. Reassessment after fluids administered. He is calm and resting quietly. Overall patient status is improved- he states feels better. GENERAL / NEURO / PSYCH: Patient is calm and cooperative. Affect appears normal. Alert. Oriented X 4. RESPIRATORY: No respiratory distress. CVS: Cardiac rhythm: sinus tachycardia. SKIN: Skin is warm and dry. --23:20 Josh Choudhary R.N. 23:18 09/06/16. BP: 135/67. HR: 124. RR: 20. O2 saturation: 95% on nasal cannula at 4 liters/minute. O2 started via nasal cannula at 4 liters/minute. Temp: 97.9 F (oral). --23:20 Josh Choudhary R.N. ( Preliminary report given to [facility] Nursing supervisor nut processing RN. Julianna). --23:33 Josh Choudhary R.N. 00:01 09/07/16. BP: 133/67. HR: 114. RR: 18. O2 saturation: 99%. Pain level now: 0/10. --00:03 Josh Choudhary R.N. Cardiac rhythm: sinus tachycardia. Patient ID band checked for patient name and birthdate: patient confirmed. Blood samples drawn from the left wrist with syringe by nurse ; labeled in presence of the patient and sent to lab. (ABG). Reassessment after procedure (CT scan). He reports no complaints and he is calm. Overall patient status is improved- he states feels better. GENERAL / NEURO / PSYCH: Patient is calm and cooperative. Affect appears normal. Alert. Oriented X 4. RESPIRATORY: No respiratory distress. SKIN: Skin is warm and dry. --00:03 Josh Choudhary R.N. 00:38 09/07/2016 Started 1 gm of Ceftriaxone IVPB in bag #1 50 mL; at 100 mL/hr over 30 minute(s) via site #1 via IV pump. Allergies verified and confirmed 5 rights. IV patency established. IV site checked: no pain, redness, or swelling. IV flushed thoroughly pre- and post-medication administration. --00:43 Josh Choudhary R.N. Cardiac rhythm: sinus tachycardia. Reassessment after medication administered. He reports no complaints and he is calm and resting quietly. Overall patient status is improved- he states feels better. GENERAL / NEURO / PSYCH: Patient is calm and cooperative. Alert. Oriented X 4. RESPIRATORY: No respiratory distress. SKIN: Skin is warm and dry. --00:45 Josh Choudhary R.N. 00:43 09/07/16. BP: 120/62. HR: 111. RR: 20. O2 saturation: 98% on nasal cannula at 4 liters/minute. Temp: 98.1 F (oral). Pain level now: 0/10. --00:45 Josh Choudhary R.N. 01:06 09/07/2016 Ceftriaxone IVPB Discontinued: bag #1 infused. Total amount infused: 50 mL. IV patency established. IV site checked: no pain, redness, or swelling. IV flushed thoroughly. --01:06 Josh Choudhary R.N. Cardiac rhythm: sinus tachycardia. Reassessment after medication administered (Ceftriaxone). He reports no complaints and he is calm and resting quietly. Overall patient status is improved- he states feels better. GENERAL / NEURO / PSYCH: Patient is calm and cooperative. Affect appears normal. Alert. Oriented X 4. RESPIRATORY: No respiratory distress. SKIN: Skin is warm and dry. --01:08 Josh Choudhary R.N. 01:06 09/07/16. BP: 125/66. HR: 110. RR: 20. O2 saturation: 96% on nasal cannula at 4 liters/minute. --01:08 Josh Choudhary R.N. Care transferred and report received. --01:15 Tania Deras R.N. Patient ID band checked for patient name and birthdate: patient confirmed. Blood samples drawn from the right antecubital space peripheral IV site with syringe by nurse per protocol ; labeled in presence of the patient and sent to lab. Initial blood discarded and additional blood sent to lab. Line flushed with 10 mL normal saline post blood draw. --02:13 Tania Deras R.N. DISPOSITION / DISCHARGE 02:36 09/07/16. BP: 144/66. HR: 128. RR: 16 (regular and unlabored). O2 saturation: 100% on nasal cannula at 2 liters/minute. Temp: deferred. Fisher-Rodas pain scale: 4/10. --02:37 Tania Deras R.N. Report was given to a nurse via a phone call. Report included patient's care, treatment, medications, reviewed medication reconcilliation, and condition (including any recent changes or anticipated changes). All questions were answered. Report was acknowledged. (to JED Ortega). --02:49 Tania Deras R.N. Transferred to [facility]. Summary of care provided to transport team via paper. Report was given. (to auto transport driver, Magnus Gonsalez). Patient's personal items include: shirt, coat and hat; items were placed in belongings bag and transported with the patient. Collection of belongings was witnessed by 1 nurse. --02:58 Tania Deras R.N. Locked/Released at 09/07/2016 3:00 by Tania Deras R.N.
--- NOTE | 2016-09-07 03:09 | ED MAR SUMMARY ---
..... Medication Administration Record [facility] [address] [place] [address] Patient: YENNY ESCALERA Visit ID: [id number] 76y, M Weight: 87.0 kg Height/Length: 67 in BMI: 30.1 ALLERGIES: No Known Drug Allergy Start 22:17 09/06/2016 Josh Choudhary R.N., Stop 23:18 09/06/2016 Josh Choudhary R.N. Medication Administered: IV NS (SALINE), Dose: IV Fluids, Bolus: 1000 mL over 1 hour(s), Site: #1 right AC. Medication Ordered: IV NS : initial bolus none -, then 1000 mL/hr for X1 (NOW). Start 00:38 09/07/2016 Josh Choudhary R.N., Stop 01:06 09/07/2016 Josh Choudhary R.N. Medication Administered: CEFTRIAXONE [IVPB], Dose: 1 gm IVPB over 30 minute(s), Rate: 100 mL/hr, Dispensed: 50 mL bag, Site: #1 right AC. Medication Ordered: Ceftriaxone IV 1 gm/50mL (NOW).
--- NOTE | 2016-09-07 03:09 | ED DISCHARGE INSTRUCTIONS ---
Patient: YENNY ESCALERA General Instructions [facility] VisitID: [id number] [address] [place] [place] [address] 76y, M Registration Date/Time: 09/06/2016 Abnormal EKG: depressed ST segments and inverted T waves. Bacterial pneumonia with hypoxemia. Empiric antibiotics given in the ED. Moderate chronic anemia associated with chronic disease. Acute urinary tract infection with cystitis. Mild hypomagnesemia. (Electronically signed by Krzysztof Monroe Dr. 09/07/2016 3:08)
--- NOTE | 2016-09-07 03:09 | ED DISCHARGE INSTRUCTIONS ---
Patient: YENNY ESCALERA General Instructions [facility] VisitID: [id number] [address] [place] [address] 76y, M Registration Date/Time: 09/06/2016 Abnormal EKG: depressed ST segments and inverted T waves. Bacterial pneumonia with hypoxemia. Empiric antibiotics given in the ED. Moderate chronic anemia associated with chronic disease. Acute urinary tract infection with cystitis. Mild hypomagnesemia. (Electronically signed by Krzysztof Monroe Dr. 09/07/2016 3:08)
--- NOTE | 2016-09-07 03:09 | ED MAR SUMMARY ---
..... Medication Administration Record [facility] [address] [place] [address] Patient: YENNY ESCALERA Visit ID: [id number] 76y, M Weight: 87.0 kg Height/Length: 67 in BMI: 30.1 ALLERGIES: No Known Drug Allergy Start 22:17 09/06/2016 Josh Choudhary R.N., Stop 23:18 09/06/2016 Josh Choudhary R.N. Medication Administered: IV NS (SALINE), Dose: IV Fluids, Bolus: 1000 mL over 1 hour(s), Site: #1 right AC. Medication Ordered: IV NS : initial bolus none -, then 1000 mL/hr for X1 (NOW). Start 00:38 09/07/2016 Josh Choudhary R.N., Stop 01:06 09/07/2016 Josh Choudhary R.N. Medication Administered: CEFTRIAXONE [IVPB], Dose: 1 gm IVPB over 30 minute(s), Rate: 100 mL/hr, Dispensed: 50 mL bag, Site: #1 right AC. Medication Ordered: Ceftriaxone IV 1 gm/50mL (NOW).
--- NOTE | 2016-09-07 03:09 | ED MED RECONCILIATION SUMMARY ---
Patient: YENNY ESCALERA Medication Reconciliation Report [facility] VisitID: [id number] [address] [place] [address] 76y, M Registration Date/Time: 09/06/2016 Weight: 87.0 kg Height/Length: 67 in. BMI: 30.1 ALLERGIES: No Known Drug Allergy The patient's Home Medications are listed below: THE FOLLOWING MEDICATIONS NEED TO BE RECONCILED: ASA Oral Atorvastatin Calcium Oral Levothyroxine Sodium Oral MetFORMIN HCl Oral Metoprolol Tartrate Oral The source(s) of the original Home Medication information: patient The following Medications were given to the patient in the Emergency Department: IV NS IV Fluids bolus 1000 mL over 1 hour(s), administered: 09/06/2016 10:17:00 PM Ceftriaxone [IVPB] IVPB bolus 0, then 1 gm 100 mL/hr, administered: 09/07/2016 12:38:00 AM The following Medications were prescribed to the patient: None.
--- NOTE | 2016-09-07 03:09 | ED MED RECONCILIATION SUMMARY ---
Patient: YENNY ESCALERA Medication Reconciliation Report [facility] VisitID: [id number] [address] [place] [address] 76y, M Registration Date/Time: 09/06/2016 Weight: 87.0 kg Height/Length: 67 in. BMI: 30.1 ALLERGIES: No Known Drug Allergy The patient's Home Medications are listed below: THE FOLLOWING MEDICATIONS NEED TO BE RECONCILED: ASA Oral Atorvastatin Calcium Oral Levothyroxine Sodium Oral MetFORMIN HCl Oral Metoprolol Tartrate Oral The source(s) of the original Home Medication information: patient The following Medications were given to the patient in the Emergency Department: IV NS IV Fluids bolus 1000 mL over 1 hour(s), administered: 09/06/2016 10:17:00 PM Ceftriaxone [IVPB] IVPB bolus 0, then 1 gm 100 mL/hr, administered: 09/07/2016 12:38:00 AM The following Medications were prescribed to the patient: None.
== END 2016-09-07 03:00 | disposition short-term general hospital (02) ==
LOC: ED SRH 21:01
DX: J15.9 Unspecified bacterial pneumonia (principal); R94.31 Abnormal electrocardiogram [ECG] [EKG]; R09.02 Hypoxemia; N30.90 Cystitis, unspecified without hematuria; E83.42 Hypomagnesemia; D64.9 Anemia, unspecified; Z95.1 Presence of aortocoronary bypass graft; E11.9 Type 2 diabetes mellitus without complications; Z79.84 Long term (current) use of oral hypoglycemic drugs; Z79.899 Other long term (current) drug therapy